=== PATIENT | female | born 1945 | race Two or more races ===

== ENCOUNTER 2017-08-07 10:30 | Emergency (ER) | payer OTHER ==
[~2017-08-07] VITALS: Ht 154.9 cm; Wt 65.8 kg
[~2017-08-07 10:30] MED LIST: AVALIDE 150-12.1 TA1; COZAAR50 MG
[2017-08-07] MEDS ORDERED: BACLOFEN10 MG (11:10)
[2017-08-07] MEDS ORDERED: CARBIDOPA-LEVO1 EAC3 (11:11)
== END 2017-08-07 14:06 | disposition home or self-care (01) ==
LOC: ER 10:30
DX: R42 Dizziness and giddiness (principal); M54.5 Low back pain